=== PATIENT | female | born 1955 | race Caucasian/White ===

== ENCOUNTER → 2019-06-18 | Outpatient (CLI) | payer OTHER ==
[~2019-06-18] MED LIST: AMOX500T2 PO; CIPR500T4 PO; FLUT9.9S NSEACH; PRD20T PO; amlodipine; celexa
--- NOTE | 2019-06-18 17:08 | Diagnostic Imaging Report ---
INDICATION: Right knee pain. AP and lateral views of the right knee are obtained. No fracture or acute bony abnormality is seen. There is minimal posterior patellar spurring. Medial and lateral joint spaces appear preserved. IMPRESSION: Minimal chronic changes with no acute abnormality of right knee. Dictated by: Dictated on workstation # [id number]
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
== END ==
LOC: RT 12:31
PROVIDERS: ATTEND Surgery
DX: Z02.71 Encounter for disability determination (principal); M25.561 Pain in right knee; M47.816 Spondylosis without myelopathy or radiculopathy, lumbar region
CPT/HCPCS: 72100; 73560; 94060

== ENCOUNTER → 2020-10-13 | Outpatient (CLI) | payer SELFPAY ==
[~2020-10-13] MED LIST changes: -CIPR500T4 PO; +CIPR500T5 PO
--- NOTE | 2020-10-13 16:00 | Diagnostic Imaging Report ---
PROCEDURE: CT chest without contrast. TECHNIQUE: Multiple contiguous axial images were obtained through the chest without the use of intravenous contrast. Auto Exposure Controls were utilized during the CT exam to meet ALARA standards for radiation dose reduction. INDICATION: Shortness of breath. COMPARISON: Radiographs dated 09/30/2015. FINDINGS: No significant adenopathy within the chest. Minimal scattered vascular calcifications. No aneurysmal dilatation of the thoracic aorta. The heart is within normal limits in size. No pericardial effusion. No pleural effusion. The trachea is patent. No pneumothorax. 0.5 cm left upper lobe pulmonary nodule, series 5, image 33. 0.4 cm left lower lobe pulmonary nodule, series 5, image 65. 0.5 cm left lower lobe pulmonary nodule, series 5, image 93. 0.5 cm right upper lobe pulmonary nodule, series 5, image 35. Calcified granuloma within the right lower lobe. Sub 0.4 cm right middle lobe pulmonary nodules are present. Additional scattered sub 0.4 cm pulmonary nodules are noted bilaterally. 1 cm peripherally calcified splenic artery aneurysm. Punctate nonobstructing right renal calculus. Calcified splenic granuloma. The visualized upper abdomen is otherwise unremarkable. Scattered osseous degenerative changes without acute osseous abnormality. IMPRESSION: Bilateral sub 0.6 cm pulmonary nodules. These are indeterminate. Recommend a follow-up CT of the chest in one year to reevaluate. 1 cm peripherally calcified splenic artery aneurysm. Punctate nonobstructing right renal calculus partially visualized. Evidence of chronic granulomatous disease. Dictated by: Dictated on workstation # [id number]
== END ==
LOC: RAD FS 11:13
PROVIDERS: ATTEND Nurse Practitioner Family
DX: R91.8 Other nonspecific abnormal finding of lung field (principal); I72.8 Aneurysm of other specified arteries; N20.0 Calculus of kidney; D71 Functional disorders of polymorphonuclear neutrophils
CPT/HCPCS: 71250

== ENCOUNTER 2022-05-05 12:21 | Emergency (ER) | payer MEDICARE, OTHER ==
[~2022-05-05] VITALS: Ht 152 cm; Wt 65.2 kg
[2022-05-05 12:27] VITALS: BP 139/94
--- NOTE | 2022-05-05 13:03 | ED Lower Extremity ---
General Chief Complaint: Lower Extremity Stated Complaint: LT LEG SWELLING/PAIN Nursing Triage Note: Pt states that she has had left leg pain radiating from the buttock down to her left foot x 2 months. States that she is concerned for a blood clot. Wants imaging. No obvious swelling, redness or deformity. Source: patient Exam Limitations: no limitations History of Present Illness Date Seen by Provider: May 05, 2022 Time Seen by Provider: 12:15 Initial Comments Patient is a 66-year-old female presents with chronic left leg and foot pain. Patient states symptoms been ongoing for the past month and extend from calf to foot. Today she reports the pain has migrated behind the left knee. Patient was evaluated by her PCP earlier today and was referred to the ED for additional evaluation. Patient denies chest pain palpitations, shortness of breath. No back pain no radicular pain. No other acute symptoms or complaints. Onset: just prior to arrival Pain/Injury Location: right leg, right knee Method of Injury: other Allergies and Home Medications Allergies Coded Allergies: No Known Drug Allergies (Unverified , 09/12/15) Patient Home Medication List Home Medication List Reviewed: Yes Ciprofloxacin HCl (Ciprofloxacin HCl) 500 Mg Tablet, 500 MG PO BID Prescribed by: DARNELL SALVADOR on 09/30/152022 Prednisone (Prednisone) 20 Mg Tab, 40 MG PO DAILY Prescribed by: DARNELL SALVADOR on 09/30/152022 [amlodipine] , (Reported) Entered as Reported by: YE DURBIN on 09/12/152101 [celexa] , (Reported) Entered as Reported by: YE DURBIN on 09/12/152101 Review of Systems Constitutional: see HPI Cardiovascular: see HPI Past Ilcfdwi-Aovfor-Uueonj Hx Patient Social History Tobacco Use?: No Use of E-Cig and/or Vaping dev: No Substance use?: No Alcohol Use?: No Pt feels they are or have been: No Seasonal Allergies Seasonal Allergies: No Past Medical History Hysterectomy Hypertension Headaches /Migraines Reproductive Disorders: No 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 oz. 68.937673gd; 28.00 BMI Method:Estimated General Appearance: no apparent distress HEENT: PERRL/EOMI, normal ENT inspection Neck: non-tender, full range of motion Cardiovascular: regular rate, rhythm, other (No pulsatile masese, popliteal pulse, 2+ and symmetric) Respiratory: lungs clear Legs: bilateral leg non-tender, bilateral leg normal inspection, bilateral leg normal range of motion Knees: bilateral knee non-tender, bilateral knee normal inspection, bilateral knee normal range of motion; left knee pain, left knee soft tissue tenderness Progress/Results/Core Measures Results/Orders Lab Results Laboratory Tests Test 05/05/22 13:09 Range/Units White Blood Count 5.3 4.3-11.0 10^3/uL Red Blood Count 4.18 3.80-5.11 10^6/uL Hemoglobin 12.4 11.5-16.0 g/dL Hematocrit 36 35-52 % Mean Corpuscular Volume 87 80-99 fL Mean Corpuscular Hemoglobin 30 25-34 pg Mean Corpuscular Hemoglobin Concent 34 32-36 g/dL Red Cell Distribution Width 14.5 10.0-14.5 % Platelet Count 229 130-400 10^3/uL Mean Platelet Volume 11.2 9.0-12.2 fL Immature Granulocyte % (Auto) 1 % Neutrophils (%) (Auto) 66 42-75 % Lymphocytes (%) (Auto) 23 12-44 % Monocytes (%) (Auto) 8 0-12 % Eosinophils (%) (Auto) 2 0-10 % Basophils (%) (Auto) 1 0-10 % Neutrophils # (Auto) 3.5 1.8-7.8 10^3/uL Lymphocytes # (Auto) 1.2 1.0-4.0 10^3/uL Monocytes # (Auto) 0.4 0.0-1.0 10^3/uL Eosinophils # (Auto) 0.1 0.0-0.3 10^3/uL Basophils # (Auto) 0.0 0.0-0.1 10^3/uL Immature Granulocyte # (Auto) 0.0 0.0-0.1 10^3/uL D-Dimer 0.28 0.00-0.49 UG/ML Sodium Level 140 135-145 MMOL/L Potassium Level 4.2 3.6-5.0 MMOL/L Chloride Level 105 98-107 MMOL/L Carbon Dioxide Level 24 21-32 MMOL/L Anion Gap 11 5-14 MMOL/L Blood Urea Nitrogen 16 7-18 MG/DL Creatinine 0.62 0.60-1.30 MG/DL Estimat Glomerular Filtration Rate 99 BUN/Creatinine Ratio 26 Glucose Level 90 70-105 MG/DL Calcium Level 9.6 8.5-10.1 MG/DL Corrected Calcium 9.2 8.5-10.1 MG/DL Total Bilirubin 0.3 0.1-1.0 MG/DL Aspartate Amino Transf (AST/SGOT) 33 5-34 U/L Alanine Aminotransferase (ALT/SGPT) 39 0-55 U/L Alkaline Phosphatase 108 40-136 U/L Total Protein 7.2 6.4-8.2 GM/DL Albumin 4.5 3.2-4.5 GM/DL My Orders Orders - BIBIANA JIMENEZ DO Cbc With Automated Diff (05/05/22 12:44) Comprehensive Metabolic Panel (05/05/22 12:44) Fibrin Degradation Products (05/05/22 12:44) Us Venous Lower Ext Lt (05/05/22 13:01) Vital Signs/I&O 05/05/22 12:27 Temp 36.8 Pulse 80 Resp 14 B/P (MAP) 139/94 (109) Pulse Ox 97 O2 Delivery Room Air Blood Pressure Mean: 109 Departure Communication (Admissions) CV ultrasound: No DVT Chronic right leg pain without evidence of DVT. Lab work. Reassuring. Recommendations are follow-up with PCP for continued management. Impression Primary Impression: Leg pain, right Disposition: HOME, SELF-CARE Condition: Stable Departure-Patient Inst. Decision time for Depature: 14:14 Referrals: KATERYNA MASON APRN (PCP) Primary Care Physician [facility] (Family) Primary Care Physician Patient Instructions: Muscle and Bone Pain (DC) Add. Discharge Instructions: You were evaluated in the ED for right leg pain. Lab and ultrasound were performed and do not show evidence of DVT (blood clot.) Discontinue anti- inflammatory and muscle relaxant follow-up with your PCP for further management. All discharge instructions reviewed with patient and/or family. Voiced understanding. BIBIANA JIMENEZ DO May 05, 2022 13:03
[2022-05-05 13:19] LABS: BASOPHILS % (AUTO) 1 % (0-10); EOSINOPHILS # (AUTO) 0.1 10^3/uL (0.0-0.3); EOSINOPHILS % (AUTO) 2 % (0-10); HEMATOCRIT 36 % (35-52); HEMOGLOBIN 12.4 g/dL (11.5-16.0); LYMPHOCYTES # (AUTO) 1.2 10^3/uL (1.0-4.0); LYMPHOCYTES % (AUTO) 23 % (12-44); MEAN CORPUSCULAR HEMOGLOBIN 30 pg (25-34); MEAN CORPUSCULAR HGB CONC 34 g/dL (32-36); MEAN CORPUSCULAR VOLUME 87 fL (80-99); MEAN PLATELET VOLUME 11.2 fL (9.0-12.2); MONOCYTES # (AUTO) 0.4 10^3/uL (0.0-1.0); MONOCYTES % (AUTO) 8 % (0-12); NEUTROPHILS # (AUTO) 3.5 10^3/uL (1.8-7.8); NEUTROPHILS % (AUTO) 66 % (42-75); PLATELET COUNT 229 10^3/uL (130-400); WHITE BLOOD COUNT 5.3 10^3/uL (4.3-11.0)
--- NOTE | 2022-05-05 13:30 | Diagnostic Imaging Report ---
PROCEDURE: US left lower extremity venous. TECHNIQUE: Multiple real-time grayscale images were obtained over the left lower extremity in various projections. Additional duplex Doppler and color Doppler images were also obtained. INDICATION: Left leg pain and swelling. FINDINGS: The veins of the left leg have good color filling and compressibility. There is phasic flow and normal response to augmentation. IMPRESSION: Negative venous Doppler, left leg. Dictated by: Dictated on workstation # [id number]
[2022-05-05 13:52] LABS: POTASSIUM 4.2 MMOL/L (3.6-5.0)
[2022-05-05 13:53] LABS: ALBUMIN 4.5 GM/DL (3.2-4.5); BILIRUBIN,TOTAL 0.3 MG/DL (0.1-1.0); CALCIUM 9.6 MG/DL (8.5-10.1); CREATININE SERUM 0.62 MG/DL (0.60-1.30); TOTAL PROTEIN 7.2 GM/DL (6.4-8.2)
== END 2022-05-05 14:21 | disposition home or self-care (01) ==
LOC: EDUNIT# 12:21 → ER FS 12:23
DX: M25.562 Pain in left knee (principal); Z28.310 Unvaccinated for COVID-19
CPT/HCPCS: 36415; 80053; 85025; 85379

== ENCOUNTER 2022-08-04 15:57 | Emergency (ER) | payer MEDICAID, MEDICARE ==
[~2022-08-04] VITALS: Ht 152 cm; Wt 61.0 kg
[2022-08-04] MEDS ORDERED: morphine INJ 10 MG/ML 1ML (SYR OR VIAL) IVP STA (16:18)
--- NOTE | 2022-08-04 16:25 | ED Abdominal Pain ---
General Chief Complaint: Abdominal/GI Problems Stated Complaint: ABD PAIN Source of Information: Patient Exam Limitations: No Limitations History of Present Illness Date Seen by Provider: Aug 04, 2022 Time Seen by Provider: 16:00 Initial Comments Patient is a 67-year-old female with history of appendectomy who presents with right lower quadrant pain/tenderness starting 3 days ago. Patient reports decreased appetite and constipation and pain with palpation and movement. Pain is moderate to severe. No nausea vomiting or sweats. No urinary frequency urgency dysuria hematuria or flank pain. No other acute symptoms or complaints. Timing/Duration: 3-4 Days Severity/Quality: Other Location: Other Radiation: Other Activities at Onset: Other Modifying Factors: Improves With Other Associated Symptoms: Other Allergies and Home Medications Allergies Coded Allergies: No Known Drug Allergies (Unverified , 09/12/15) Patient Home Medication List Home Medication List Reviewed: Yes Ciprofloxacin HCl (Ciprofloxacin HCl) 500 Mg Tablet, 500 MG PO BID Prescribed by: DARNELL SALVADOR on 09/30/152022 Prednisone (Prednisone) 20 Mg Tab, 40 MG PO DAILY Prescribed by: DARNELL SALVADOR on 09/30/152022 [amlodipine] , (Reported) Entered as Reported by: YE DURBIN on 09/12/152101 [celexa] , (Reported) Entered as Reported by: YE DURBIN on 09/12/152101 Review of Systems Review of Systems Constitutional: see HPI EENTM: See HPI Respiratory: See HPI Cardiovascular: See HPI Gastrointestinal: See HPI Genitourinary: See HPI Musculoskeletal: see HPI Skin: see HPI Psychiatric/Neurological: See HPI Endocrine: See HPI Hematologic/Lymphatic: See HPI All Other Systems Reviewed Negative Unless Noted: No Past Xmzvbnz-Ghyywb-Msludo Hx Patient Social History Tobacco Use?: No Use of E-Cig and/or Vaping dev: No Substance use?: No Alcohol Use?: No Seasonal Allergies Seasonal Allergies: No Past Medical History Hysterectomy Hypertension Headaches /Migraines 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 oz. 68.747515qo; 28.00 BMI Method:Estimated General Appearance: WD/WN, no apparent distress HEENT: PERRL/EOMI, normal ENT inspection Respiratory: lungs clear Cardiovascular: normal peripheral pulses, regular rate, rhythm, no edema Gastrointestinal: soft, tenderness (RLQ pain/tenderness) Back: normal inspection, no CVA tenderness Neurologic/Psychiatric: alert, oriented x 3 Skin: normal color Progress/Results/Core Measures Results/Orders Lab Results Laboratory Tests Test 08/04/22 16:09 08/04/22 16:11 Range/Units Urine Color YELLOW Urine Clarity CLOUDY Urine pH 5.5 5-9 Urine Specific [place] 1.025 H 1.016-1.022 Urine Protein 2+ H NEGATIVE Urine Glucose (UA) NEGATIVE NEGATIVE Urine Ketones TRACE H NEGATIVE Urine Nitrite NEGATIVE NEGATIVE Urine Bilirubin NEGATIVE NEGATIVE Urine Urobilinogen 0.2 < = 1.0 MG/DL Urine Leukocyte Esterase TRACE H NEGATIVE Urine RBC (Auto) 2+ H NEGATIVE Urine RBC RARE /HPF Urine WBC 25-50 H /HPF Urine Squamous Epithelial Cells 0-2 /HPF Urine Crystals NONE /LPF Urine Bacteria LARGE H /HPF Urine Casts NONE /LPF Urine Mucus NEGATIVE /LPF Urine Culture Indicated YES White Blood Count 19.9 H 4.3-11.0 10^3/uL Red Blood Count 4.44 3.80-5.11 10^6/uL Hemoglobin 12.9 11.5-16.0 g/dL Hematocrit 36 35-52 % Mean Corpuscular Volume 82 80-99 fL Mean Corpuscular Hemoglobin 29 25-34 pg Mean Corpuscular Hemoglobin Concent 35 32-36 g/dL Red Cell Distribution Width 14.2 10.0-14.5 % Platelet Count 167 130-400 10^3/uL Mean Platelet Volume 12.5 H 9.0-12.2 fL Immature Granulocyte % (Auto) 1 % Neutrophils (%) (Auto) 92 H 42-75 % Lymphocytes (%) (Auto) 2 L 12-44 % Monocytes (%) (Auto) 5 0-12 % Eosinophils (%) (Auto) 0 0-10 % Basophils (%) (Auto) 0 0-10 % Neutrophils # (Auto) 18.3 H 1.8-7.8 10^3/uL Lymphocytes # (Auto) 0.4 L 1.0-4.0 10^3/uL Monocytes # (Auto) 1.0 0.0-1.0 10^3/uL Eosinophils # (Auto) 0.0 0.0-0.3 10^3/uL Basophils # (Auto) 0.1 0.0-0.1 10^3/uL Immature Granulocyte # (Auto) 0.1 0.0-0.1 10^3/uL Neutrophils % (Manual) 88 % Lymphocytes % (Manual) 0 % Monocytes % (Manual) 1 % Eosinophils % (Manual) 0 % Basophils % (Manual) 0 % Band Neutrophils 11 % Sodium Level 133 L 135-145 MMOL/L Potassium Level 3.0 L 3.6-5.0 MMOL/L Chloride Level 96 L 98-107 MMOL/L Carbon Dioxide Level 22 21-32 MMOL/L Anion Gap 15 H 5-14 MMOL/L Blood Urea Nitrogen 32 H 7-18 MG/DL Creatinine 1.64 H 0.60-1.30 MG/DL Estimat Glomerular Filtration Rate 35 BUN/Creatinine Ratio 20 Glucose Level 139 H 70-105 MG/DL Calcium Level 9.8 8.5-10.1 MG/DL Corrected Calcium 10.1 8.5-10.1 MG/DL Total Bilirubin 0.9 0.1-1.0 MG/DL Aspartate Amino Transf (AST/SGOT) 12 5-34 U/L Alanine Aminotransferase (ALT/SGPT) 14 0-55 U/L Alkaline Phosphatase 134 40-136 U/L Total Protein 7.3 6.4-8.2 GM/DL Albumin 3.6 3.2-4.5 GM/DL My Orders Orders - BIBIANA JIMENEZ DO Cbc With Automated Diff (08/04/22 16:18) Comprehensive Metabolic Panel (08/04/22 16:18) Ua Culture If Indicated (08/04/22 16:18) Ns Iv 1000 Ml (Sodium Chloride 0.9%) (08/04/22 16:30) Ondansetron Injection (Zofran Injectio (08/04/22 16:30) Ct Abd/Pelv W (Appendicitis) (08/04/22 16:18) Morphine Injection (Morphine Injection (08/04/22 16:18) Manual Differential (08/04/22 16:11) Urine Culture (08/04/22 16:09) Iohexol Injection (Omnipaque 350 Mg/Ml 1 (08/04/22 17:00) Received Contrast (Hold Metformin- Contr (08/04/22 17:00) Ns (Ivpb) (Sodium Chloride 0.9% Ivpb Bag (08/04/22 17:00) Ceftriaxone 1 Gm Pre-Mix (Rocephin 1 Gm (08/04/22 17:45) Ketorolac Injection (Toradol Injection) (08/04/22 17:45) Medications Given in ED Current Medications Medications Dose Ordered Sig/Kay Route Start Time Stop Time Status Last Admin Dose Admin Ceftriaxone Sodium/Dextrose 50 ml @ 100 mls/hr ONCE ONCE IV 08/04/22 17:45 08/04/22 18:14 08/04/22 17:42 100 MLS/HR Iohexol 100 ml ONCE ONCE IV 08/04/22 17:00 08/04/22 17:01 DC 08/04/22 17:10 75 ML Ketorolac Tromethamine 30 mg ONCE ONCE IVP 08/04/22 17:45 08/04/22 17:46 DC 08/04/22 17:45 30 MG Ondansetron HCl 4 mg ONCE ONCE IVP 08/04/22 16:30 08/04/22 16:31 DC 08/04/22 16:28 4 MG Sodium Chloride 100 ml ONCE ONCE IV 08/04/22 17:00 08/04/22 17:01 DC 08/04/22 17:10 100 ML Vital Signs/I&O 08/04/22 08/04/22 16:17 17:03 Temp 37.0 37.0 Pulse 108 84 Resp 20 20 B/P (MAP) 178/59 (98) 104/64 Pulse Ox 97 99 Departure Communication (Admissions) CT abdomen pelvis: 6 mm obstructive right UVJ stone with moderate hydro ureter and mild hydronephrosis Right lower abdominal pain with obstructive kidney stone and trace urinary tract infection in the setting of chronic kidney disease. IV fluids, pain medication and antibiotics given with improved symptoms. Patient resting comfortably. Case reviewed and discussed with Dr. Fung who has offered to see the patient tomorrow at [facility] or next week at his [facility]. Patient prefers to go home and attempt to pass the stone on her own, but agrees to follow-up with Dr. Fung in clinic in 1 week. Patient verbalizes agreement with the treatment plan. Return precautions reviewed. Patient verbalizes understanding and agreement with discharge instructions prior to departure. Impression Primary Impression: Right lower quadrant pain Additional Impressions: Kidney stone Chronic kidney disease Urinary tract infection Disposition: 01 HOME, SELF-CARE Condition: Stable Departure-Patient Inst. Decision time for Depature: 18:04 Referrals: KATERYNA MASON APRN (PCP) Primary Care Physician [facility] (Family) Primary Care Physician Patient Instructions: Kidney Stone, Adult ED Add. Discharge Instructions: You were evaluated in the emergency department for right lower abdominal pain. Lab and imaging studies were performed and demonstrate a large kidney stone just above your bladder and your right pelvis. Please increase fluids and strain urine for passage of kidney stone. Take newly prescribed pain and nausea medication as directed and complete course of antibiotics. Contact Dr. Fung's office at to schedule a follow-up appointment and in his [place] [facility] on 08/13/2022. In the meantime, if you develop new or worsening symptoms return to the emergency department. All discharge instructions reviewed with patient and/or family. Voiced understanding. Scripts Ondansetron (Ondansetron Odt) 4 Mg Tab.rapdis 4 MG SL Q4H PRN for NAUSEA/VOMITING, #10 TAB Prov: BIBIANA JIMENEZ DO 08/04/22 Hydrocodone/Acetaminophen (Hydrocodone-Acetamin 5-325 mg) 5 Mg-325 Mg Tablet 1 TAB PO Q4H PRN for PAIN-MODERATE (5-7), #10 TAB Prov: BIBIANA JIMENEZ DO 08/04/22 Nitrofurantoin Monohyd/M-Cryst (Macrobid 100 mg Capsule) 100 Mg Capsule 1 TAB PO BID, #20 CAP Prov: BIBIANA JIMENEZ DO 08/04/22 BIBIANA JIMENEZ DO Aug 04, 2022 16:25
[2022-08-04 16:27] LABS: BASOPHILS # (AUTO) 0.1 10^3/uL (0.0-0.1); BASOPHILS % (AUTO) 0 % (0-10); EOSINOPHILS % (AUTO) 0 % (0-10); HEMATOCRIT 36 % (35-52); HEMOGLOBIN 12.9 g/dL (11.5-16.0); LYMPHOCYTES # (AUTO) 0.4 10^3/uL (1.0-4.0); LYMPHOCYTES % (AUTO) 2 % (12-44); MEAN CORPUSCULAR HEMOGLOBIN 29 pg (25-34); MEAN CORPUSCULAR HGB CONC 35 g/dL (32-36); MEAN CORPUSCULAR VOLUME 82 fL (80-99); MEAN PLATELET VOLUME 12.5 fL (9.0-12.2); MONOCYTES % (AUTO) 5 % (0-12); NEUTROPHILS # (AUTO) 18.3 10^3/uL (1.8-7.8); NEUTROPHILS % (AUTO) 92 % (42-75); PLATELET COUNT 167 10^3/uL (130-400); WHITE BLOOD COUNT 19.9 10^3/uL (4.3-11.0)
[2022-08-04 16:28] LABS: BILIRUBIN,URINE NEGATIVE (NEGATIVE); CLARITY,URINE CLOUDY; COLOR,URINE YELLOW; GLUCOSE, URINE (UA) NEGATIVE (NEGATIVE); KETONES,URINE TRACE (NEGATIVE); LEUKOCYTE ESTERASE ,URINE TRACE (NEGATIVE); NITRITE,URINE NEGATIVE (NEGATIVE); PH,URINE 5.5 (5-9); PROTEIN,URINE 2+ (NEGATIVE)
[2022-08-04] MEDS ORDERED: NS IV 1000 ML 1,000 ML IV SCH (16:30)
[2022-08-04] MEDS ORDERED: ONDANSETRON 4 MG/2 ML (SDV) Z0FRAN IVP ONE (16:30)
[2022-08-04 16:36] LABS: BACTERIA,URINE LARGE /HPF; RBC,URINE RARE /HPF; SQUAMOUS EPITHELIAL CELL,UR 0-2 /HPF; WBC,URINE 25-50 /HPF
[2022-08-04 16:47] LABS: ALBUMIN 3.6 GM/DL (3.2-4.5); BILIRUBIN,TOTAL 0.9 MG/DL (0.1-1.0); CALCIUM 9.8 MG/DL (8.5-10.1); CREATININE SERUM 1.64 MG/DL (0.60-1.30); TOTAL PROTEIN 7.3 GM/DL (6.4-8.2)
[2022-08-04 16:54] LABS: BAND NEUTROPHILS 11 %; LYMPHOCYTES % (MANUAL) 0 %; NEUTROPHILS % (MANUAL) 88 %
[2022-08-04 16:55] LABS: BASOPHILS % (MANUAL) 0 %; EOSINOPHILS % (MANUAL) 0 %; MONOCYTES % (MANUAL) 1 %
[2022-08-04] MEDS ORDERED: HOLD METFORMIN - RECEIVED CONTRAST 20 ML VIAL IV SCH (17:00)
[2022-08-04] MEDS ORDERED: IOHEXOL 350 MG/ML 100 ML (OMNIPAQUE 350) VIAL IV ONE (17:00)
[2022-08-04] MEDS ORDERED: NS 100 ML (IVPB) BAG IV ONE (17:00)
[2022-08-04 17:03] VITALS: BP 104/64
--- NOTE | 2022-08-04 17:32 | Diagnostic Imaging Report ---
PROCEDURE: CT abdomen and pelvis with contrast, rule out appendicitis. TECHNIQUE: Multiple contiguous axial images were obtained through the abdomen and pelvis after the administration of intravenous contrast. All CT scans use one or more of the following dose optimizing techniques: automated exposure control, MA and/or KvP adjustment based on patient size and exam type or iterative reconstruction. INDICATION: Right lower quadrant pain. COMPARISON: None available. FINDINGS: Minimal right basilar scarring and/or atelectasis. The liver and spleen are unremarkable. Mild enlargement of the bilateral adrenal glands without discrete adrenal mass lesion. A 6 mm calculus is identified within the right ureterovesicular junction. This is resulting in mild right hydroureteronephrosis. However, the right kidney demonstrates a severely heterogeneous and slightly striated appearance. The right kidney is also asymmetrically enlarged and demonstrates delayed enhancement. 1.7 cm hypodensity is noted within the mid right kidney posteriorly. The left kidney and ureter are unremarkable. The pancreas is unremarkable. The gallbladder is unremarkable. Mild vascular calcifications within the abdominal aorta and its branch vessels without aneurysmal dilatation of the abdominal aorta. The urinary bladder is unremarkable. The uterus is not visualized, surgically absent. No abnormal adnexal mass lesion. Postsurgical changes involving the bowel within the right abdomen. No bowel obstruction or pneumatosis. Mild fat stranding is noted about the proximal right ureter. No significant adenopathy, free air, or free fluid within the abdomen or pelvis. No acute osseous abnormality. IMPRESSION: 6 mm calculus within the right ureterovesicular junction with resulting mild right hydroureteronephrosis and obstructive uropathy. Significantly heterogeneous enhancement and delayed enhancement of the right kidney which may simply relate to underlying obstructive hydrocephalus, though superimposed pyelonephritis should be considered. Recommend correlation with urinalysis. Indeterminate 1.7 cm hypodensity within the right kidney, which could relate to a cyst. Recommend renal ultrasound after resolution of this acute event. Additional findings, as described above. Dictated by: Dictated on workstation # [id number]
[2022-08-04] MEDS ORDERED: KETOROLAC 30 MG/ML VIAL IVP ONE (17:45)
[2022-08-04] MEDS ORDERED: cefTRIAXone 1 GM PRE-MIX 50 ML IV ONE (17:45)
[2022-08-04] MEDS ORDERED: ONDA4TAB11 SL (18:09)
[2022-08-04] MEDS ORDERED: ACHD5005 PO (18:09)
[2022-08-04] MEDS ORDERED: NITR-65 PO (18:09)
== END 2022-08-04 18:13 | disposition home or self-care (01) ==
LOC: EDUNIT# 15:57 → ER FS 15:58
DX: N13.2 Hydronephrosis with renal and ureteral calculous obstruction (principal); I12.9 Hypertensive chronic kidney disease with stage 1 through stage 4 chronic kidney disease, or unspecified chronic kidney disease; N18.9 Chronic kidney disease, unspecified; N39.0 Urinary tract infection, site not specified; Z90.49 Acquired absence of other specified parts of digestive tract; Z28.310 Unvaccinated for COVID-19
CPT/HCPCS: 36415; 74177; 80053; 81000; 85007; 85027; 87077; 87088